=== PATIENT | male | born 2000 | race Caucasian/White ===

== ENCOUNTER 2023-01-26 08:27 | Inpatient (IN) | payer BC, MEDICAID ==
[~2023-01-26] VITALS: Ht 185.4 cm; Wt 83.9 kg
[2023-01-26 08:41] VITALS: BP_SYST 155; PULSE 70; RESP 19; TEMP 97.5; O2SAT 62
[2023-01-26 08:59] LABS: BASOPHILS % (AUTO) 0.8 % (0.0-2.0); EOSINOPHILS # (AUTO) 0.3 K/uL (0.0-0.4); EOSINOPHILS % (AUTO) 4.2 % (0.0-4.0); HEMATOCRIT 43.2 % (36-54); HEMOGLOBIN 14.8 g/dL (14.0-18.0); LYMPHOCYTES # (AUTO) 2.9 K/uL (1.0-5.5); LYMPHOCYTES % (AUTO) 46.2 % (20.5-51.5); MEAN CORPUSCULAR HEMOGLOBIN 31 pg (27-31); MEAN CORPUSCULAR HGB CONC 34 % (32-36); MEAN CORPUSCULAR VOLUME 89 fL (79.0-98.0); MONOCYTES # (AUTO) 0.6 K/uL (0.0-1.0); MONOCYTES % (AUTO) 9.2 % (1.7-9.3); NEUTROPHILS # (AUTO) 2.5 K/uL (1.8-7.7); NEUTROPHILS % (AUTO) 39.6 % (40.0-70.0); PLATELET COUNT (AUTO) 154 K/uL (130-430); RED BLOOD CELL COUNT(AUTO) 4.83 MIL/uL (4.2-6.2); RED CELL DISTRIBUTION WIDTH 13.2 % (9.0-15.0); WHITE BLOOD COUNT (AUTO) 6.4 K/uL (4.5-11.0)
[2023-01-26] MEDS ORDERED: NACL 0.9% 1,000 ML IV ONE ×2 (09:00→14:30)
[2023-01-26] MEDS ORDERED: MORPHINE 4 MG INJ. 4 MG/ML VIAL IVP ONE (09:00)
[2023-01-26 09:12] LABS: CALCIUM 9.1 mg/dL (8.4-11.0); CREATININE 0.9 mg/dL (0.55-1.30)
[2023-01-26 09:16] LABS: ALBUMIN 3.9 g/dL (3.4-4.8); TOTAL BILIRUBIN 0.3 mg/dL (0.0-1.0); TOTAL PROTEIN, SERUM 7.2 g/dL (6.4-8.3)
[2023-01-26] MEDS ORDERED: DICYCLOMINE HCL 10 MG CAPSULE PO ONE (09:45)
[2023-01-26] MEDS ORDERED: FAMOTIDINE PF 20 MG/2 ML VIAL IVP ONE (09:45)
[2023-01-26] MEDS ORDERED: KETOROLAC TROMETHAMINE 15 MG VIAL IVP ONE (09:45)
[2023-01-26] MEDS ORDERED: HYDROcodone/ACETAMIN 5-325 MG TAB (NORCO/ VICODIN) PO PRN (14:30)
[2023-01-26] MEDS ORDERED: LR 1,000 ML IV ONE (14:30)
[2023-01-26] MEDS ORDERED: ONDANSETRON HCL 4 MG/2 ML VIAL IVP PRN (14:30)
[2023-01-26] MEDS ORDERED: HYDROmorphone 1 MG/ML INJ. CARTRIDGE IVP PRN ×7 (14:30→18:00)
[2023-01-26] MEDS ORDERED: PIPERACILLIN/TAZO 3.375/DEX-IS 50 ML IV ONE (14:45)
[2023-01-26] MEDS ORDERED: ONDANSETRON HCL 4 MG/2 ML VIAL ONE ×2 (15:50→17:06)
[2023-01-26] MEDS ORDERED: METOCLOPRAMIDE HCL 10 MG/2 ML VIAL ONE (15:50)
[2023-01-26] MEDS ORDERED: DEXAMETHASONE SOD PHOSPHATE 4 MG/ML VIAL ONE (15:51)
[2023-01-26] MEDS ORDERED: fentaNYL CITRATE/PF 100 MCG/2 ML AMP ONE (15:51)
[2023-01-26] MEDS ORDERED: LIDOCAINE JECT 2% PF 100 MG/5ML SYRINGE ONE (15:52)
[2023-01-26] MEDS ORDERED: ACETAMINOPHEN I.V. 1000 MG 100 ML IV ONE (15:52)
[2023-01-26] MEDS ORDERED: BUPIVACAINE /PF 0.5% 30 ML VIAL ONE (16:04)
[2023-01-26] MEDS ORDERED: PROPOFOL 200MG/ 20ML VIAL (DIPRIVAN) IV ONE (16:04)
[2023-01-26] MEDS ORDERED: NS 1000 ML IV.SOLN IV ONE (16:04)
[2023-01-26] MEDS ORDERED: SEVOFLURANE 15 MIN GAS INH ONE (16:04)
[2023-01-26] MEDS ORDERED: ROCURONIUM BROMIDE 10 MG/ML (ZEMURON) ONE (16:04)
[2023-01-26] MEDS ORDERED: NS IRRIG SOLN 1000 ML IR ONE (16:04)
[2023-01-26] MEDS ORDERED: DICYCLOMINE HCL 10 MG/5 ML SOLUTION PO PRN (17:45)
[2023-01-26] MEDS ORDERED: NALOXONE HCL 0.4 MG/ML AMP (NARCAN) IVP PRN (17:45)
[2023-01-26 17:50] VITALS: PULSE 50; O2SAT 98
[2023-01-26] MEDS ORDERED: MEPERIDINE HCL/PF 25 MG/ML DISP.SYRIN IVP PRN ×3 (18:00)
[2023-01-26] MEDS ORDERED: MORPHINE 4 MG INJ. 4 MG/ML VIAL IVP PRN ×6 (18:00)
[2023-01-26] MEDS ORDERED: ePHEDrine sulfate 50 MG/ML VIAL IVP PRN ×3 (18:00)
[2023-01-26] MEDS ORDERED: HYDROmorphone 2 MG/ML VIAL ONE (18:23)
[2023-01-26] MEDS ORDERED: MORPHINE 2 MG/ML INJ. SYRINGE ONE (18:25)
[2023-01-26 18:45] VITALS: BP_SYST 120; PULSE 54; RESP 18; TEMP 98.1
[2023-01-26] MEDS ORDERED: PIPERACILLIN/TAZOBACTAM 3.375 GM/VIAL (ZOSYN) IV ONE (19:53)
[2023-01-26 19:58] VITALS: BP_SYST 120; PULSE 58; RESP 17; TEMP 98
[2023-01-26 20:00] VITALS: BP_SYST 122; PULSE 54; RESP 17; TEMP 98.4; O2SAT 98
[2023-01-26] MEDS: PIPERACILLIN/TAZO 3.375/DEX-IS 50 ML IV SCH (20:06)
[2023-01-26 21:43] VITALS: BP_SYST 122; PULSE 58; RESP 17; TEMP 97.9; O2SAT 98
[2023-01-26] MEDS: NORMAL SALINE 5 ML DISP.SYRIN IVF SCH (22:42)
[2023-01-27 00:11] VITALS: BP_SYST 118; PULSE 58; RESP 17; TEMP 98; O2SAT 98
[2023-01-27] MEDS ORDERED: NACL 0.9% 1,000 ML IV SCH (01:00)
[2023-01-27 01:09] VITALS: O2SAT 98
[2023-01-27] MEDS: PIPERACILLIN/TAZO 3.375/DEX-IS 50 ML IV SCH ×2 (01:19→06:28)
[2023-01-27] MEDS: NORMAL SALINE 5 ML DISP.SYRIN IVF SCH (06:06)
[2023-01-27 07:30] VITALS: BP_SYST 110; PULSE 50; RESP 18; TEMP 97.9
[2023-01-27] MEDS ORDERED: DICYCLOMINE HCL 10 MG/5 ML SOLUTION PO PRN (08:46)
[2023-01-27 10:59] VITALS: BP_SYST 110; PULSE 50; RESP 18; TEMP 97.9; O2SAT 99
[2023-01-27 11:30] VITALS: BP_SYST 114; PULSE 75; RESP 19; TEMP 98.7; O2SAT 100
[2023-01-27] MEDS ORDERED: PIPERACILLIN/TAZOBACTAM 3.375 GM/ DEX-IS 50 ML PREMIX IV SCH (12:00)
== END 2023-01-27 12:26 | disposition home or self-care (01) | DRG 399 ==
LOC: SED 08:27 → SMU 14:22
PROVIDERS: ADMIT Surgery; ATTEND Surgery
PROC: 0DTJ4ZZ Resection of Appendix, Percutaneous Endoscopic Approach (ICD-10-PCS; principal; 2023-01-26 16:28)
DX: K35.80 Unspecified acute appendicitis (principal); K38.1 Appendicular concretions; K42.9 Umbilical hernia without obstruction or gangrene
CPT/HCPCS: 36415; 71045; 76376; 80053; 83690; 85025; 88304; 93005; 96361; 96374; 96375; 99285; J0131; J1100; J1170; J1885; J2270; J2405; J2543; J2704; J2765; J3010; J3490; J7030